=== PATIENT | male | born 1995 | race Caucasian/White ===

== ENCOUNTER 2018-01-02 19:17 | Emergency (ER) | payer OTHER ==
--- NOTE | 2018-01-02 19:43 | EDPHY ---
H & P Stated Complaint: FLU LIKE SX FOR PAST 2 DAYS, FEVER, COUGH, JOINT ACHES Time Seen by Provider: 01/02/18 19:42 HPI/ROS: HPI: This is a 22-year-old male who presents with Chief Complaint: FLU LIKE SX FOR PAST 2 DAYS, FEVER, COUGH, JOINT ACHES Location: Body Quality: Aches Duration: 2 days Signs and Symptoms: + fever, + nausea, + vomiting, + diarrhea, no urinary symptoms, no chest pain, no shortness of breath, no wheezing, no cough, no sore throat, no neck stiffness, no joint pain, no swollen glands, no ear pain, no rash Timing: Acute, sudden onset, constant Severity: Moderate Context: Patient is generally healthy, [employer] student, presents with complaints of 2 day history of sudden onset of body aches, nausea , vomiting x2 to 3 times a day x2 days, joint pain, nonproductive cough and fever. Patient reports he is unable to keep any liquids or fever medications down. He denies any abdominal pain/chest pain/shortness of breath/headache/ neck stiffness. Nonsmoker. No history of lung disease. Received influenza vaccine this year. Modifying Factors: None Comment: ROS: see HPI Constitutional: + fever, no chills, no weight loss Eyes: No blurred vision Respiratory: No shortness of breath, + cough Cardiovascular: No chest pain, no palpitations Gastrointestinal: + nausea, + vomiting, + diarrhea, no hematemesis, no blood in stool Genitourinary: No dysuria, no blood in urine Extremities: No myalgias, no edema Neurologic: No weakness, no numbness Skin: No rashes, no petechiae Hematologic: No bruising, no bleeding MEDICAL/SURGICAL/SOCIAL HISTORY: Medical history: Generally healthy. Does not take any regular medications. Surgical history: Denies Social history: Local [employer] student. Served in the [employer]. Family history noncontributory. CONSTITUTIONAL: Ill but nontoxic-appearing young adult white male, polite and cooperative, awake and alert, no obvious distress HEENT: Atraumatic and normocephalic, PERRL, EOMI. Tympanic membranes clear. Oropharynx clear, no exudate and moist pink mucosa. Airway patent. No lymphadenopathy. No meningismus. Cardiovascular: Normal S1/S2, tachycardia, regular rhythm, without murmur rub or gallop. PULMONARY/CHEST: Symmetrical and nontender. Clear to auscultation bilaterally. Good air movement. No accessory muscle usage. ABDOMEN: Soft, nondistended, nontender, no rebound, no guarding, no peritoneal signs, no masses or organomegaly. No CVAT. EXTREMITIES: 2/2 pulses, strength 5/5, no deformities, no clubbing, no cyanosis or edema. NEUROLOGICAL: no focal neuro deficits. GCS 15. SKIN: Warm and dry, no erythema. no rash. Good capillary refill. Source: Patient Exam Limitations: No limitations - Personal History Current Tetanus/Diphtheria Vaccine: Yes Current Tetanus Diphtheria and Acellular Pertussis (TDAP): Yes - Medical/Surgical History Hx Asthma: No Hx Chronic Respiratory Disease: No Hx Diabetes: No Hx Cardiac Disease: No Hx Renal Disease: No Hx Cirrhosis: No Hx Alcoholism: No Hx HIV/AIDS: No Hx Splenectomy or Spleen Trauma: No Other PMH: DENIES - Social History Smoking Status: Never smoked Constitutional: Initial Vital Signs Temperature (C) 38.4 C H 01/02/18 19:32 Heart Rate 119 H 01/02/18 19:32 Respiratory Rate 18 01/02/18 19:32 Blood Pressure 127/84 H 01/02/18 19:32 O2 Sat (%) 94 01/02/18 19:32 O2 Delivery Mode Room Air Allergies/Adverse Reactions: No Known Allergies Allergy (Unverified 01/02/18 19:34) Home Medications: Medication Instructions Recorded Ondansetron Odt [Zofran Odt 4 mg 4 mg PO Q4 PRN #12 tab 01/02/18 (*)] Medical Decision Making ED Course/Re-evaluation: Vital signs reviewed and show fever and tachycardia. Patient's abdomen is soft and nontender; doubt surgical abdomen. Not a Tamiflu candidate; will not order influenza test. Will give IV fluids and IV medication. 1957: Given 2 L normal saline, IV Toradol, IV Zofran No signs of otitis media/meningitis. 2029: Reassessed patient. Able to tolerate oral Tylenol. Vital signs at discharge show resolved tachycardia. Passed p.o. Trial. Abdomen continues to remain soft and nontender. Advised supportive care. This patient was seen under the supervision of my secondary supervising physician. I evaluated care for this patient independently. Discussed this patient with Dr. Fitzgerald who did not see the patient. Differential Diagnosis: Adult fever including but not limited to viral syndromes including influenza, urinary tract infection, pneumonia and sepsis. - Data Points Medications Given: Discontinued Medications Acetaminophen (Tylenol) 650 mg PO EDNOW ONE Stop: 01/02/18 20:33 Last Admin: 01/02/18 20:33 Dose: 650 mg Sodium Chloride (Ns) 1,000 mls @ 0 mls/hr IV EDNOW ONE; Wide Open PRN Reason: Protocol Stop: 01/02/18 19:49 Last Admin: 01/02/18 19:53 Dose: 1,000 mls Sodium Chloride (Ns) 1,000 mls @ 0 mls/hr IV EDNOW ONE; Wide Open PRN Reason: Protocol Stop: 01/02/18 19:49 Last Admin: 01/02/18 19:52 Dose: 1,000 mls Ketorolac Tromethamine (Toradol) 30 mg IVP EDNOW ONE Stop: 01/02/18 19:49 Last Admin: 01/02/18 19:51 Dose: 30 mg Ondansetron HCl (Zofran) 4 mg IVP EDNOW ONE Stop: 01/02/18 19:49 Last Admin: 01/02/18 19:51 Dose: 4 mg Ondansetron HCl (Zofran) 4 mg IVP EDNOW ONE Stop: 01/02/18 20:33 Last Admin: 01/02/18 20:33 Dose: 4 mg Departure - Departure Disposition: Home, Routine, Self-Care Clinical Impression: Viral syndrome Condition: Good Instructions: Viral Syndrome (ED) Additional Instructions: Consume a minimum of 8-10 glasses of water or electrolyte fluid replacement drinks that include Gatorade, Powerade, Pedialyte. If unable to drink liquids, eat popsicles. Eat a bland diet for the next 48 hours and then slowly advance as tolerated. Take Tylenol 650 mg every 4 hr and/or ibuprofen 600-800 mg every 8 hr as needed for fever. Take Zofran 1 tab every 4 hours as needed for nausea, vomiting. Return to the Emergency Room if symptoms do not resolve in the next 48-72 hours , you spike a fever > 102 F, or experience intractable abdominal pain/nausea/ vomiting. Referrals: [facility],. [Clinic] - As per Instructions Stand Alone Forms: School Excuse Prescriptions: Ondansetron Odt [Zofran Odt 4 mg (*)] 4 mg PO Q4 PRN #12 tab PRN Reason: Nausea/Vomiting, Use 1st
[2018-01-02] MEDS ORDERED: KETOROLAC 30 MG/1 ML SDV ONE (19:48)
[2018-01-02] MEDS ORDERED: ONDANSETRON 4 MG/2 ML VIAL IVP ONE ×2 (19:48→20:32)
[2018-01-02] MEDS ORDERED: KETOROLAC 30 MG/1 ML SDV IVP ONE (19:48)
[2018-01-02] MEDS ORDERED: ONDANSETRON 4 MG/2 ML VIAL ONE (19:48)
[2018-01-02] MEDS ORDERED: NS 1,000 ML IV ONE ×2 (19:48)
[2018-01-02] MEDS ORDERED: ACETAMINOPHEN 325 MG TAB ONE (20:30)
[2018-01-02] MEDS ORDERED: ACETAMINOPHEN 325 MG TAB PO ONE (20:32)
[2018-01-02 21:45] VITALS: BP 124/60
== END 2018-01-02 21:44 | disposition home or self-care (01) ==
DX: B34.9 Viral infection, unspecified (principal); E86.9 Volume depletion, unspecified
CPT/HCPCS: 96374; J1885; J2405